=== PATIENT | male | born 1960 | race Caucasian/White ===

== ENCOUNTER 2016-11-25 12:48 | Emergency (ER) | payer BC ==
[~2016-11-25] VITALS: Ht 198.1 cm; Wt 171.4 kg
[2016-11-25 12:51] VITALS: TEMP 97.9
[2016-11-25 13:24] LABS: BASO # 0.1 (0.0-0.2); BASO % 0.5 % (0.0-2.0); EOS # 0.1 (0.0-0.7); EOS % 0.8 % (0-4.0); GRAN # 12.7 (1.4-6.5); GRAN % 76.2 % (42.2-75.2); HEMOGLOBIN 14.5 g/dl (13.5-18.0); LYMPH # 2.5 (1.2-3.4); LYMPH % 14.8 % (20.0-51.0); MEAN CELL VOLUME 89 fl (80.0-100.0); MEAN CORPUSCULAR HEMOGLOBIN 30 pg (27.0-31.0); MEAN CORPUSCULAR HGB CONC 34 g/dl (33.0-37.0); MEAN PLATELET VOLUME 9.6 fl (7.4-10.4); MONO # 1.2 (0.1-0.6); MONO % 7.2 % (1.7-9.3); PLATELET COUNT 288 K/mm3 (130-400); RED BLOOD COUNT 4.84 M/mm3 (4.20-5.60); REDCELL DISTRIBUTION WIDTH-CV 13.2 % (11.5-14.5); WHITE BLOOD COUNT 16.6 K/mm3 (4.8-10.8)
[2016-11-25 13:35] LABS: ADJUSTED CALCIUM 8.9 mg/dL (8.4-10.2); ALANINE AMINOTRANSFERASE 30 U/L (21-72); ALBUMIN 3.5 gm/dL (3.5-5.0); ALKALINE PHOSPHATASE 70 U/L (50-136); ANION GAP 9 mmol/L (7-16); BILIRUBIN,TOTAL 1.5 mg/dL (0.0-1.0); BLOOD UREA NITROGEN 12 mg/dL (9-20); CALCIUM 8.5 mg/dL (8.4-10.2); CARBON DIOXIDE 22 mmol/L (22-30); CHLORIDE 108 mmol/L (98-107); CREATININE, serum 1.13 mg/dL (0.66-1.25); GLUCOSE 106 mg/dL (74-106); POTASSIUM 3.9 mmol/L (3.4-5.0); SODIUM 139 mmol/L (137-145); TOTAL PROTEIN 6.7 gm/dL (6.4-8.2)
[2016-11-25 13:44] LABS: B-TYPE NATRIURETIC PEPTIDE 461 pg/mL (0-125)
[2016-11-25 16:15] LABS: TROPONIN-I < 0.012 ng/mL (0.000-0.034)
[2016-11-25] MEDS ORDERED: DOXYCYCLINE 10100 MG PO (16:23)
[2016-11-25] MEDS ORDERED: PROAIR HFA0.09 MG/AC IH (16:23)
[2016-11-25 17:04] VITALS: BP 117/62; PULSE 86
== END 2016-11-25 17:06 | disposition home or self-care (01) ==
LOC: COL.ER 12:48
PROVIDERS: Physician Assistant Medical
DX: R06.02 Shortness of breath (principal)
CPT/HCPCS: Q9967

== ENCOUNTER 2016-11-27 09:26 | Inpatient (IN) | payer BC ==
[~2016-11-27] VITALS: Ht 198.1 cm; Wt 160.8 kg
[2016-11-27] VITALS (610 sets, daily range): BP systolic 122–147; BP diastolic 64–85; PULSE 79–87; TEMP 98.6–98.8; O2SAT 87–97
[~2016-11-27 09:26] MED LIST: DOXYCYCLINE 10100 MG PO; PROAIR HFA0.09 MG/AC IH
[2016-11-27 09:55] LABS: HEMATOCRIT 41.1 % (42.0-52.0); HEMOGLOBIN 13.9 g/dl (13.5-18.0); MEAN CELL VOLUME 89 fl (80.0-100.0); MEAN CORPUSCULAR HEMOGLOBIN 30 pg (27.0-31.0); MEAN CORPUSCULAR HGB CONC 34 g/dl (33.0-37.0); MEAN PLATELET VOLUME 9.7 fl (7.4-10.4); PLATELET COUNT 324 K/mm3 (130-400); RED BLOOD COUNT 4.64 M/mm3 (4.20-5.60); REDCELL DISTRIBUTION WIDTH-CV 13.5 % (11.5-14.5); WHITE BLOOD COUNT 18.1 K/mm3 (4.8-10.8)
[2016-11-27 10:02] LABS: ADD PATHOLOGY DIFF REVIEW NO
[2016-11-27 10:08] LABS: ALANINE AMINOTRANSFERASE 29 U/L (21-72); ALBUMIN 3.7 gm/dL (3.5-5.0); ALKALINE PHOSPHATASE 68 U/L (50-136); ANION GAP 11 mmol/L (7-16); BILIRUBIN,TOTAL 1.9 mg/dL (0.0-1.0); BLOOD UREA NITROGEN 13 mg/dL (9-20); C-REACTIVE PROTEIN 2.8 mg/dL (0.0-0.9); CALCIUM 8.8 mg/dL (8.4-10.2); CARBON DIOXIDE 20 mmol/L (22-30); CHLORIDE 107 mmol/L (98-107); CREATINE KINASE 73 U/L (55-170); CREATININE, serum 1.07 mg/dL (0.66-1.25); GLUCOSE 112 mg/dL (74-106); POTASSIUM 3.6 mmol/L (3.4-5.0); SODIUM 138 mmol/L (137-145)
[2016-11-27 10:14] LABS: B-TYPE NATRIURETIC PEPTIDE 335 pg/mL (0-125)
[2016-11-27 10:42] LABS: TROPONIN-I < 0.012 ng/mL (0.000-0.034)
[2016-11-27 11:21] LABS: BAND 22 % (0-10); EOSINOPHIL 1 % (0-4); MYELOCYTE 1 % (0-0); NEUTROPHILS 59 % (42.0-75.2); PLATELET ESTIMATE INCREASED (NORMAL); TOTAL CELLS COUNTED 100
[2016-11-27 13:24] LABS: ARTERIAL BLD GAS TCO2 CT 23.7; ARTERIAL BLOOD GAS BASE EXCESS -0.5 (-2-2); ARTERIAL BLOOD GAS HCO3 22.7 meq/L (22-26); ARTERIAL BLOOD GAS PHT 7.45 C (7.35-7.45); ARTERIAL BLOOD GAS PO2 55.9 mmHg (80-100); ARTERIAL BLOOD GAS PO2T 55.9 (80-100); ARTERIAL BLOOD GAS pH 7.45 (7.35-7.45); ATS? YES; OXYHEMOGLOBIN 88.8 %
[2016-11-27 13:48] LABS: MAGNESIUM 1.9 mg/dL (1.6-2.3)
[2016-11-27 23:15] LABS: PH 6 (5-8); SQUAMOUS EPITHELIAL None Seen /hpf; URINE APPEARANCE Clear; URINE BACTERIA None Seen /hpf; URINE BILIRUBIN Negative (NEGATIVE); URINE BLOOD 1+ (NEGATIVE); URINE COLOR Yellow; URINE GLUCOSE Negative (NEGATIVE); URINE KETONE Negative (NEGATIVE); URINE UROBILINOGEN Negative (NEGATIVE); URINE WBC 0-2 /hpf
[2016-11-28] VITALS (1421 sets, daily range): BP systolic 116–133; BP diastolic 36–72; PULSE 77–97; TEMP 97–99; O2SAT 87–100
[2016-11-29] VITALS (912 sets, daily range): BP systolic 121–148; BP diastolic 60–74; PULSE 75–86; TEMP 97–100.1; O2SAT 82–100
[2016-11-29 05:55] LABS: HEMOGLOBIN 12.2 g/dl (13.5-18.0); MEAN CELL VOLUME 91 fl (80.0-100.0); MEAN CORPUSCULAR HEMOGLOBIN 31 pg (27.0-31.0); MEAN CORPUSCULAR HGB CONC 33 g/dl (33.0-37.0); MEAN PLATELET VOLUME 9.9 fl (7.4-10.4); PLATELET COUNT 337 K/mm3 (130-400)
[2016-11-29 06:00] LABS: ADD PATHOLOGY DIFF REVIEW NO; HEMATOCRIT 36.5 % (42.0-52.0); WHITE BLOOD COUNT 31.6 K/mm3 (4.8-10.8)
[2016-11-29 06:06] LABS: ADJUSTED CALCIUM 9.2 mg/dL (8.4-10.2); ALBUMIN 3.5 gm/dL (3.5-5.0); BILIRUBIN,TOTAL 2.1 mg/dL (0.0-1.0); CALCIUM 8.8 mg/dL (8.4-10.2); CREATININE, serum 1.1 mg/dL (0.66-1.25); POTASSIUM 4.2 mmol/L (3.4-5.0); TOTAL PROTEIN 6.5 gm/dL (6.4-8.2)
[2016-11-29 06:07] LABS: BAND 3 % (0-10); NEUTROPHILS 89 % (42.0-75.2); TOTAL CELLS COUNTED 100
[2016-11-29 06:08] LABS: ANISOCYTOSIS 1+; POIKILOCYTOSIS 1+; POLYCHROMASIA 1+; TOXIC GRANULATION PRESENT
[2016-11-29 10:23] LABS: ROCKY MOUNTAIN SPOT FEVER-ABS <1:16 (<1:16)
[2016-11-30 03:18] VITALS: BP 111/51; PULSE 70; TEMP 98.9
[2016-11-30 08:25] VITALS: BP 142/68; PULSE 75; TEMP 98.1
[2016-11-30 10:17] LABS: HEMOGLOBIN 12.4 g/dl (13.5-18.0); MEAN CELL VOLUME 91 fl (80.0-100.0); MEAN CORPUSCULAR HEMOGLOBIN 31 pg (27.0-31.0); MEAN CORPUSCULAR HGB CONC 34 g/dl (33.0-37.0); MEAN PLATELET VOLUME 10.1 fl (7.4-10.4); PLATELET COUNT 363 K/mm3 (130-400); RED BLOOD COUNT 4.06 M/mm3 (4.20-5.60); REDCELL DISTRIBUTION WIDTH-CV 14.2 % (11.5-14.5)
[2016-11-30 10:24] LABS: ADJUSTED CALCIUM 9.4 mg/dL (8.4-10.2); ALBUMIN 3.5 gm/dL (3.5-5.0); CREATININE, serum 1.05 mg/dL (0.66-1.25); TOTAL PROTEIN 6.6 gm/dL (6.4-8.2); WHITE BLOOD COUNT 29.1 K/mm3 (4.8-10.8)
[2016-11-30 10:25] LABS: ADD PATHOLOGY DIFF REVIEW NO
[2016-11-30 11:13] LABS: BAND 24 % (0-10); METAMYELOCYTE 1 % (0-0); MYELOCYTE 2 % (0-0); NEUTROPHILS 61 % (42.0-75.2); PLATELET ESTIMATE INCREASED (NORMAL); TOTAL CELLS COUNTED 100
[2016-11-30 11:40] VITALS: BP 120/67; PULSE 72; TEMP 97.9
[2016-11-30 16:19] VITALS: BP 147/79; PULSE 77; TEMP 97.6
[2016-11-30 20:48] VITALS: BP 140/72; PULSE 78; TEMP 98.4
[2016-12-01 00:19] VITALS: BP 124/50; PULSE 73; TEMP 98.6
[2016-12-01 03:54] VITALS: BP 122/58; PULSE 77; TEMP 97.4
[2016-12-01 08:59] LABS: CK total - for Isoenzymes 89 U/L (52 - 336)
[2016-12-01 09:00] VITALS: BP 117/66; PULSE 76; TEMP 98.7
[2016-12-01 11:20] VITALS: BP 103/52; PULSE 75
[2016-12-01 15:35] VITALS: BP 119/72; PULSE 83; TEMP 98.2
[2016-12-01 20:24] VITALS: BP 111/45; PULSE 85; TEMP 97.6
[2016-12-02] VITALS (586 sets, daily range): BP systolic 127–148; BP diastolic 47–86; PULSE 77–92; TEMP 97.8–99.2; O2SAT 68–100
[2016-12-02 09:40] LABS: C-REACTIVE PROTEIN 5.9 mg/dL (0.0-0.9)
[2016-12-02 09:42] LABS: MEAN CELL VOLUME 92 fl (80.0-100.0); MEAN CORPUSCULAR HGB CONC 33 g/dl (33.0-37.0); MEAN PLATELET VOLUME 10.5 fl (7.4-10.4); PLATELET COUNT 367 K/mm3 (130-400); RED BLOOD COUNT 3.71 M/mm3 (4.20-5.60); REDCELL DISTRIBUTION WIDTH-CV 14.1 % (11.5-14.5)
[2016-12-02 09:45] LABS: ADD PATHOLOGY DIFF REVIEW NO; HEMOGLOBIN 11.2 g/dl (13.5-18.0); MEAN CORPUSCULAR HEMOGLOBIN 30 pg (27.0-31.0); WHITE BLOOD COUNT 27.4 K/mm3 (4.8-10.8)
[2016-12-02 09:56] LABS: CALCIUM 8.7 mg/dL (8.4-10.2); CREATININE, serum 1.04 mg/dL (0.66-1.25); POTASSIUM 3.9 mmol/L (3.4-5.0)
[2016-12-02 10:07] LABS: BAND 9 % (0-10); NEUTROPHILS 79 % (42.0-75.2); TOTAL CELLS COUNTED 100
[2016-12-02 10:09] LABS: PLATELET ESTIMATE NORMAL (NORMAL)
[2016-12-02 14:35] LABS: ARTERIAL BLD GAS O2 SATURATION 79.6 % (92-100); ARTERIAL BLOOD GAS BASE EXCESS 0.1 (-2-2); ARTERIAL BLOOD GAS PHT 7.48 C (7.35-7.45); ARTERIAL BLOOD GAS pH 7.48 (7.35-7.45); OXYHEMOGLOBIN 78.6 %
[2016-12-02 14:37] LABS: ARTERIAL BLOOD GAS PO2 43.2 mmHg (80-100); ARTERIAL BLOOD GAS PO2T 43.2 (80-100); ATS? YES
[2016-12-02 14:49] LABS: INR 1.3 (0.8-3.0); PROTHROMBIN TIME 14.1 SECONDS (9.7-12.8)
[2016-12-02 15:03] LABS: ARTERIAL BLD GAS TCO2 CT 25.9; ARTERIAL BLOOD GAS BASE EXCESS 1.6 (-2-2); ARTERIAL BLOOD GAS HCO3 24.9 meq/L (22-26); ARTERIAL BLOOD GAS PHT 7.47 C (7.35-7.45); ARTERIAL BLOOD GAS PO2 61.3 mmHg (80-100); ARTERIAL BLOOD GAS PO2T 61.3 (80-100); ARTERIAL BLOOD GAS pH 7.47 (7.35-7.45); OXYHEMOGLOBIN 90.9 %
[2016-12-02 15:04] LABS: ATS? YES
[2016-12-03] VITALS (899 sets, daily range): BP systolic 118–155; BP diastolic 75–83; PULSE 66–74; TEMP 97.8–99.6; O2SAT 72–100
[2016-12-03 05:34] LABS: PROCALCITONIN 0.18 ng/mL (0.00-0.09)
[2016-12-03 05:43] LABS: ALLEN TEST YES; ARTERIAL BLD GAS O2 SATURATION 92.2 % (92-100); ARTERIAL BLD GAS TCO2 CT 25.6; ARTERIAL BLOOD GAS HCO3 24.5 meq/L (22-26); ARTERIAL BLOOD GAS PO2 66.8 mmHg (80-100); ARTERIAL BLOOD GAS pH 7.46 (7.35-7.45); ATS? YES; OXYHEMOGLOBIN 91.5 %
[2016-12-03 06:02] LABS: BASO % 0.2 % (0.0-2.0); GRAN # 21.7 (1.4-6.5); GRAN % 87.8 % (42.2-75.2); LYMPH # 1.4 (1.2-3.4); LYMPH % 5.5 % (20.0-51.0); MEAN CELL VOLUME 92 fl (80.0-100.0); MEAN CORPUSCULAR HGB CONC 32 g/dl (33.0-37.0); MEAN PLATELET VOLUME 10.5 fl (7.4-10.4); MONO # 1.1 (0.1-0.6); MONO % 4.4 % (1.7-9.3); PLATELET COUNT 308 K/mm3 (130-400); RED BLOOD COUNT 3.38 M/mm3 (4.20-5.60); REDCELL DISTRIBUTION WIDTH-CV 14.7 % (11.5-14.5)
[2016-12-03 06:04] LABS: MEAN CORPUSCULAR HEMOGLOBIN 30 pg (27.0-31.0); WHITE BLOOD COUNT 24.7 K/mm3 (4.8-10.8)
[2016-12-03 06:17] LABS: ADJUSTED CALCIUM 8.7 mg/dL (8.4-10.2); ALBUMIN 3.2 gm/dL (3.5-5.0); BILIRUBIN,TOTAL 3.3 mg/dL (0.0-1.0); CALCIUM 8.1 mg/dL (8.4-10.2); CREATININE, serum 1.25 mg/dL (0.66-1.25); MAGNESIUM 2.5 mg/dL (1.6-2.3); PHOSPHOROUS 4.7 mg/dL (2.5-4.5); POTASSIUM 3.6 mmol/L (3.4-5.0); TOTAL PROTEIN 5.9 gm/dL (6.4-8.2)
[2016-12-03] MEDS ORDERED: XOPENEX 1.1.25 MG/3 IH (15:19)
[2016-12-03] MEDS ORDERED: LOVENOX 4040 MG/0.4 SQ (15:19)
[2016-12-03] MEDS ORDERED: CARDIZEM CD 18180 MG PO (15:20)
[2016-12-03] MEDS ORDERED: TYLENOL 325MG325 MG PO (15:20)
[2016-12-03] MEDS ORDERED: MUCINEX DM 30 M1 TE1 PO (15:20)
[2016-12-03] MEDS ORDERED: LASIX 20MG TABL20 MG PO (15:20)
[2016-12-03] MEDS ORDERED: PEPCID 20MG TAB20 MG PO (15:21)
[2016-12-03] MEDS ORDERED: SOLU-MEDR500 IV (15:26)
[2016-12-03] MEDS ORDERED: ZOSYN 3 GM-0.371 PD1 IV (15:26)
[2016-12-03 21:54] LABS: TULAREMIA AGGLUTININS <1:20 (())
== END 2016-12-03 16:15 | disposition home or self-care (01) | DRG 907 ==
LOC: COL.ER 09:26 → MEDICAL 10:57 → COL.ER 10:57 → MEDICAL 10:57 → ICU 10:57 → MEDICAL 11-29 15:47 → ICU 11-29 15:47 → MEDICAL 12-02 14:18 → ICU 12-02 14:20
PROVIDERS: Emergency Medicine; Internal Medicine; Internal Medicine Pulmonary Disease; Physician Assistant
PROC: 0BCF8ZZ Extirpation of Matter from Right Lower Lung Lobe, Via Natural or Artificial Opening Endoscopic (ICD-10-PCS; 2016-12-03)
PROC: 0BCJ8ZZ Extirpation of Matter from Left Lower Lung Lobe, Via Natural or Artificial Opening Endoscopic (ICD-10-PCS; 2016-12-03)
PROC: 0BC48ZZ Extirpation of Matter from Right Upper Lobe Bronchus, Via Natural or Artificial Opening Endoscopic (ICD-10-PCS; principal; 2016-12-03 13:00)
DX: T60.3X1A Toxic effect of herbicides and fungicides, accidental (unintentional), initial encounter (principal); J96.01 Acute respiratory failure with hypoxia; J68.0 Bronchitis and pneumonitis due to chemicals, gases, fumes and vapors; R04.2 Hemoptysis; Z68.41 Body mass index [BMI] 40.0-44.9, adult; I47.1 Supraventricular tachycardia; E66.2 Morbid (severe) obesity with alveolar hypoventilation; I27.2 Other secondary pulmonary hypertension
CPT/HCPCS: 99223-AI; 99232-AI; 99233-AI; 99239; C1751; C1894; J0153; J1644; J1650; J1815; J1940; J1956; J2543; J2704; J2930; J7030; J7050; J7120; J7512

== ENCOUNTER → 2018-07-24 | Outpatient (CLI) | payer BC ==
[~2018-07-24] MED LIST changes: +CARDIZEM CD 18180 MG PO; +LASIX 20MG TABL20 MG PO; +LOVENOX 4040 MG/0.4 SQ; +MUCINEX DM 30 M1 TE1 PO; +PEPCID 20MG TAB20 MG PO; +SOLU-MEDR500 IV; +TYLENOL 325MG325 MG PO; +XOPENEX 1.1.25 MG/3 IH; +ZOSYN 3 GM-0.371 PD1 IV
== END ==
LOC: COL.RAD 11:28
DX: I10 Essential (primary) hypertension (principal); I77.810 Thoracic aortic ectasia; R91.1 Solitary pulmonary nodule

== ENCOUNTER → 2019-03-09 | Outpatient (CLI) | payer BC | LOC: COL.RAD 10:55 | DX: I77.810 Thoracic aortic ectasia (principal); R91.1 Solitary pulmonary nodule; I10 Essential (primary) hypertension | CPT/HCPCS: Q9967 ==

== ENCOUNTER → 2022-08-29 | Outpatient (CLI) | payer BC | LOC: COL.RAD 12:41 | DX: I77.819 Aortic ectasia, unspecified site (principal) | CPT/HCPCS: Q9967 ==